=== PATIENT | female | born 1965 | race Two or more races ===

== ENCOUNTER 2021-11-19 15:52 | Emergency (ER) | payer SELFPAY ==
[~2021-11-19] VITALS: Ht 154.9 cm; Wt 86.2 kg
[2021-11-19] MEDS ORDERED: ASPIRIN EC 81 MG TABLET.DR PO ONE ×2 (16:00→16:07)
--- NOTE | 2021-11-19 16:10 | NUR ---
RECEIVED PT 56 yrs female came from home c/o CHEST PAIN 07/25 STARTD AT 0300 AM TODAY awake and alert respiration spont and easy
--- NOTE | 2021-11-19 16:15 | NUR ---
EXAMINE by DR. DIAZ
[2021-11-19] MEDS ORDERED: LABETALOL HCL IV 100MG VIAL IV ONE ×3 (16:30→17:30)
--- NOTE | 2021-11-19 16:30 | NUR ---
INSERTED ANGO CATHTED G 18 ON RT AC BLOOD DROW AND SENT TO LAB
[2021-11-19 16:44] LABS: BASOPHILS % (AUTO) 0.6 % (0.0-2.0); EOSINOPHILS % (AUTO) 2.5 % (0.0-6.0); HEMATOCRIT 36 % (33-45); LYMPHOCYTES # (AUTO) 1.8 K/uL (0.8-4.8); LYMPHOCYTES % (AUTO) 40.4 % (20.0-44.0); MEAN CORPUSCULAR HGB CONC 33 g/dl (31.0-36.0); MEAN CORPUSCULAR VOLUME 87 fL (82-100); MONOCYTES # (AUTO) 0.4 K/uL (0.1-1.30); MONOCYTES % (AUTO) 8.6 % (2.0-12.0); NEUTROPHILS # (AUTO) 2.2 K/uL (1.8-8.9); NEUTROPHILS % (AUTO) 47.9 % (43.0-81.0); PLATELET COUNT (AUTO) 263 K/uL (150-450); RED BLOOD CELL COUNT(AUTO) 4.17 MIL/uL (4.0-5.2); WHITE BLOOD COUNT (AUTO) 4.5 K/uL (4.3-11.0)
[2021-11-19] MEDS ORDERED: LABETALOL HCL IV 100MG VIAL ONE (16:49)
--- NOTE | 2021-11-19 17:00 | NUR ---
RESTING AT THIS TIME NO CHANGE
[2021-11-19 17:01] LABS: CALCIUM, SERUM 8.8 mg/dL (8.5-10.1); CARBON DIOXIDE 28 mmol/L (21-32); CHLORIDE 105 mmol/L (98-107); CREATININE 0.6 mg/dL (0.6-1.3); GLUCOSE 92 mg/dL (74-106); POTASSIUM 3.9 mmol/L (3.5-5.1); SODIUM SERUM 140 mmol/L (136-145); UREA NITROGEN, BLOOD 18 mg/dL (7-18)
--- NOTE | 2021-11-19 18:00 | NUR ---
RESTING AT THIS TIME CONTENUE MONITER HR
--- NOTE | 2021-11-19 18:57 | NUR ---
DINALE CHEST PAIN OR sob looks comfortable at this time
--- NOTE | 2021-11-19 19:24 | NUR ---
HAND OFF TO MIA COFFEY
--- NOTE | 2021-11-19 19:46 | NUR ---
Patient discharged to home in stable condition. Written and verbal after care instructions given. Patient verbalizes understanding of instruction.IV removed. Catheter intact and site benign. Pressure and 4x4 applied to site. No bleeding noted.
[2021-11-19 20:25] VITALS: BP 144/88
== END 2021-11-19 19:50 | disposition home or self-care (01) ==
LOC: ER 17:33
DX: R07.9 Chest pain, unspecified (principal); F17.200 Nicotine dependence, unspecified, uncomplicated
CPT/HCPCS: 99285; 96374; 71045; 93005 ×4; 96376; 85025; 80048; 36415; 84484 ×2; J3490